=== PATIENT | male | born 1935 | race Caucasian/White ===

== ENCOUNTER → 2017-07-11 09:30 | Outpatient (REF) | payer MEDICARE, SELFPAY ==
[2017-07-12 08:38] LABS: Color, Urine Yellow (Yellow); Glucose, Dipstick Normal (Normal); Ketone-Dipstick Negative (Negative); Leukocyte Esterase-Dipstick 25 /ul (Negative); Nitrite-Dipstick Positive (Negative); Occult Blood-Urine 150 /ul (Negative); Protein-Dipstick 15 mg/dl (Negative); Urine Bilirubin Dipstick Negative (Negative); Urine Clarity Clear (Clear); Urine Urobilinogen Normal (Normal)
== END ==
LOC: OLS.WCC 09:30
PROVIDERS: Visit Provider Family Medicine
DX: N39.0 Urinary tract infection, site not specified (principal)
CPT/HCPCS: 81002; 87077; 87086; 87088; 87186

== ENCOUNTER → 2017-07-28 05:00 | Outpatient (REF) | payer MEDICARE, SELFPAY ==
[2017-07-28 09:38] LABS: Absolute Lymphocyte Count 4.03 X10^3/ul (0.83-4.51); Absolute Neutrophil Count 4.1 X10^3/uL (2.0-7.7); Basophil# 0.06 X10^3/uL; Basophil% 0.6 % (0-1); Eosinophil# 0.36 X10^3/uL; Eosinophils% 3.8 % (0-5); Hematocrit 48.7 % (40-54); Hemoglobin 15.8 g/dl (13.0-16.5); Lymphocyte # 4.03 X10^3/ul (4.0); Lymphocyte % 42.6 % (19-41); Mean Corp Hgb Conc 32.4 g/gl (32-36); Mean Corpuscular Hgb 31.5 pg (27.0-32.0); Mean Platelet Vol. 10.1 fl (6.2-12.0); Monocyte# 0.85 X10^3/uL; Neutrophil % 43.4 % (47-70); POSITIVE COUNT NO; POSITIVE DIFFERENTIAL NO; POSITIVE MORPHOLOGY NO; Platelet Count 239 K/mm3 (150-450); RBC Distribution Width CV 14.8 % (11.6-14.6); RBC Distribution Width SD 51.2 fl (35.1-43.9); Red Blood Count 5.02 M/mm3 (4.6-6.2); White Blood Count 9.5 K/mm3 (4.4-11.0)
[2017-07-28 09:46] LABS: ALB/GLOB Ratio 0.7 RATIO (0.9-2.4); AST(SGOT) 21 U/L (15-37); Alanine Aminotransfer ALT/SGPT 21 U/L (12-78); Albumin, Serum 2.8 g/dL (3.4-5.0); Alkaline Phosphatase 73 U/L (45-117); Anion Gap 8 (5-15); BUN 25 mg/dL (7-18); BUN/Creat Ratio 19.1 RATIO (10-20); Calcium,Total 8.2 mg/dL (8.5-10.1); Chloride 104 mmol/L (98-107); Cholesterol 165 mg/dL (200); Creatinine, Serum 1.31 mg/dL (0.70-1.30); EST Glomerular Filtration Rate 56 mL/min (>60); Est Glom Filt Rate - Afr Amer 68 mL/min (>60); Globulin 4.1 g/dL (2.2-4.2); Glucose 180 mg/dL (70-110); High Density Lipoprotein 59 mg/dL; Potassium 3.9 mmol/L (3.5-5.1); Protein, Total 6.9 g/dL (6.4-8.2); Sodium Level 140 mmol/L (136-145); Triglycerides 111 mg/dL; Very Low Density Lipoprotein 22 mg/dL (5-40)
== END ==
LOC: OLS.WCC 05:00
PROVIDERS: Visit Provider Family Medicine
DX: N40.1 Benign prostatic hyperplasia with lower urinary tract symptoms (principal); E11.9 Type 2 diabetes mellitus without complications; E78.5 Hyperlipidemia, unspecified; Z12.5 Encounter for screening for malignant neoplasm of prostate
CPT/HCPCS: 36415; 80053; 80061; 83036; 84153; 85025; G0103

== ENCOUNTER → 2017-10-19 16:00 | Outpatient (REF) | payer MEDICARE, SELFPAY ==
[2017-10-20 08:49] LABS: Color, Urine Yellow (Yellow); Glucose, Dipstick Normal (Normal); Ketone-Dipstick Negative (Negative); Leukocyte Esterase-Dipstick 500 /ul (Negative); Nitrite-Dipstick Positive (Negative); Occult Blood-Urine 250 /ul (Negative); Protein-Dipstick 30 mg/dl (Negative); Specific Gravity, Urine 1.015 (1.002-1.030); Urine Bilirubin Dipstick Negative (Negative); Urine Clarity Sl. Cloudy (Clear); Urine Urobilinogen Normal (Normal)
== END ==
LOC: OLS.WCC 16:00
PROVIDERS: Visit Provider Family Medicine
DX: N39.0 Urinary tract infection, site not specified (principal)
CPT/HCPCS: 81002; 87077; 87086; 87088; 87186

== ENCOUNTER → 2017-11-23 05:00 | Outpatient (REF) | payer MEDICARE, SELFPAY ==
[2017-11-23 08:22] LABS: Hematocrit 50.7 % (40-54); Hemoglobin 16.5 g/dl (13.0-16.5); Mean Corp Hgb Conc 32.5 g/gl (32-36); Mean Corpuscular Volume 98.4 fL (80-94); Mean Platelet Vol. 9.8 fl (6.2-12.0); Platelet Count 223 K/mm3 (150-450); RBC Distribution Width CV 15.2 % (11.6-14.6); RBC Distribution Width SD 54.1 fl (35.1-43.9); Red Blood Count 5.15 M/mm3 (4.6-6.2); White Blood Count 11.1 K/mm3 (4.4-11.0)
[2017-11-23 08:27] LABS: Scan Indicated on CBC? Y/N NO
[2017-11-23 08:43] LABS: ALB/GLOB Ratio 0.7 RATIO (0.9-2.4); AST(SGOT) 18 U/L (15-37); Alanine Aminotransfer ALT/SGPT 19 U/L (16-61); Alkaline Phosphatase 75 U/L (45-117); Anion Gap 9 (5-15); BUN 25 mg/dL (7-18); BUN/Creat Ratio 17.9 RATIO (10-20); Calcium,Total 8.8 mg/dL (8.5-10.1); Chloride 100 mmol/L (98-107); EST Glomerular Filtration Rate 52 mL/min (>60); Est Glom Filt Rate - Afr Amer 63 mL/min (>60); Globulin 4.4 g/dL (2.2-4.2); Glucose 128 mg/dL (74-106); Potassium 3.9 mmol/L (3.5-5.1); Protein, Total 7.4 g/dL (6.4-8.2); Sodium Level 141 mmol/L (136-145); Thyroid Stim Hormone (TSH) 2.54 uIU/mL (0.358-3.74)
[2017-11-23 08:45] LABS: Hemoglobin A1c 8.2 % (4.2-6.3)
== END ==
LOC: OLS.WCC 05:00
PROVIDERS: Visit Provider Family Medicine
DX: E11.9 Type 2 diabetes mellitus without complications (principal); R53.83 Other fatigue
CPT/HCPCS: 36415; 80053; 83036; 84443; 85027

== ENCOUNTER → 2018-01-18 05:00 | Outpatient (REF) | payer MEDICARE, SELFPAY ==
[2018-01-18 08:06] LABS: Absolute Lymphocyte Count 5.57 X10^3/ul (0.83-4.51); Absolute Neutrophil Count 4.3 X10^3/uL (2.0-7.7); Basophil# 0.04 X10^3/uL; Basophil% 0.3 % (0-1); Eosinophil# 0.51 X10^3/uL; Eosinophils% 4.4 % (0-5); Hematocrit 45.4 % (40-54); Hemoglobin 15.2 g/dl (13.0-16.5); Lymphocyte # 5.57 X10^3/ul (4.0); Lymphocyte % 48.5 % (19-41); Mean Corp Hgb Conc 33.5 g/gl (32-36); Mean Corpuscular Hgb 31.6 pg (27.0-32.0); Mean Corpuscular Volume 94.4 fL (80-94); Monocyte# 0.98 X10^3/uL; Monocyte% 8.5 % (0-10); Neutrophil # 4.27 X10^3/uL (2.7-7.7); Neutrophil % 37.3 % (47-70); Platelet Count 228 K/mm3 (150-450); RBC Distribution Width CV 13.9 % (11.6-14.6); RBC Distribution Width SD 46.2 fl (35.1-43.9); Red Blood Count 4.81 M/mm3 (4.6-6.2); White Blood Count 11.5 K/mm3 (4.4-11.0)
[2018-01-18 08:07] LABS: ALB/GLOB Ratio 0.7 RATIO (0.9-2.4); AST(SGOT) 17 U/L (15-37); Alanine Aminotransfer ALT/SGPT 21 U/L (16-61); Albumin, Serum 3.1 g/dL (3.2-5.0); Alkaline Phosphatase 53 U/L (45-117); Anion Gap 10 (5-15); BUN 50 mg/dL (7-18); Calcium,Total 8.8 mg/dL (8.5-10.1); Chloride 98 mmol/L (98-107); Cholesterol 285 mg/dL (200); EST Glomerular Filtration Rate 26 mL/min (>60); Est Glom Filt Rate - Afr Amer 32 mL/min (>60); Globulin 4.4 g/dL (2.2-4.2); Glucose 106 mg/dL (74-106); High Density Lipoprotein 39 mg/dL; Potassium 3.7 mmol/L (3.5-5.1); Protein, Total 7.5 g/dL (6.4-8.2); Sodium Level 139 mmol/L (136-145); Triglycerides 221 mg/dL; Very Low Density Lipoprotein 44 mg/dL (5-40)
[2018-01-18 08:09] LABS: Differential Indicated SCAN CRITERIA MET; POSITIVE COUNT NO; POSITIVE DIFFERENTIAL YES; POSITIVE MORPHOLOGY NO
[2018-01-18 08:24] LABS: Reactive Lymphocyte RARE
[2018-01-18 09:07] LABS: Hemoglobin A1c 7.8 % (4.2-6.3)
== END ==
LOC: OLS.WCC 05:00
PROVIDERS: Visit Provider Family Medicine
DX: E11.9 Type 2 diabetes mellitus without complications (principal); Z79.899 Other long term (current) drug therapy; E78.5 Hyperlipidemia, unspecified; N40.0 Benign prostatic hyperplasia without lower urinary tract symptoms
CPT/HCPCS: 36415; 80053; 80061; 83036; 84153; 85025